=== PATIENT | female | born 1995 | race Two or more races ===

== ENCOUNTER 2023-06-14 02:27 | Inpatient (IN) | payer BC, OTHER ==
[~2023-06-14] VITALS: Ht 168 cm; Wt 91.6 kg
[2023-06-14] MEDS ORDERED: PROMETHAZINE HCL 25 MG/ML 1ML IV PRN (03:30)
[2023-06-14] MEDS ORDERED: BUTORPHANOL TARTRATE 2 MG/1 ML VIAL IV PRN ×2 (03:30)
[2023-06-14] MEDS ORDERED: LIDOCAINE 2%HCL (LOCAL ANESTH.) INJ 20ML MDV IJ PRN (03:30)
[2023-06-14] MEDS ORDERED: PREN27TA7 OR (03:44)
[2023-06-14] MEDS: ePHEDrine SULFATE 50 MG/ML AMP IV ONE (03:45)
[2023-06-14] MEDS: NALOXONE HCL 0.4 MG/ML VIAL IV ONE (03:45)
[2023-06-14] MEDS: LACTATED RINGER'S 1,000 ML IV ONE (03:45)
[2023-06-14] MEDS: LACTATED RINGER'S 1,000 ML IV SCH (03:57)
[2023-06-14 04:12] LABS: Basophils # (auto) 0 10 ^3/uL (0-0.2); Basophils % (auto) 0.3 % (0.0-2.0); Eosinophils # (auto) 0 10 ^3/uL (0-0.8); Monocytes # (auto) 0.7 10 ^3/uL (0-1.3)
[2023-06-14 04:13] LABS: Eosinophils % (auto) 0.3 % (0.0-7.0); Hematocrit 33.6 % (36.0-46.0); Hemoglobin 10.5 g/dL (12.2-16.2); Lymphocytes # (auto) 2.3 10 ^3/uL (0.4-5.4); Lymphocytes % (auto) 21.2 % (10.0-50.0); Mean Corpuscular Hemoglobin 25.2 pg (28.0-32.0); Mean Corpuscular Hgb Conc. 31.3 g/dL (32.0-36.0); Mean Corpuscular Volume 80.6 fL (80.0-100.0); Monocytes % (auto) 6.2 % (0.0-12.0); Neutrophils # (auto) 7.9 10 ^3/uL (1.6-8.6); Nucleated Red Blood Cells % 0.1 %; Red Blood Cells 4.18 10^6/uL (4.0-5.20); Red Cell Distribution Width 15.4 % (11.8-14.3)
[2023-06-14 04:15] LABS: Alanine Aminotransferase 19 U/L (7-40); Albumin 3.9 g/dL (3.2-4.8); Alkaline Phosphatase 133 U/L (46-116); Anion Gap 9 (5-15); Aspartate Aminotransferase 19 U/L (13-40); Bilirubin, Total 0.3 mg/dL (0.2-1.0); Blood Urea Nitrogen 7 mg/dL (9-23); Calcium 9.2 mg/dL (8.7-10.4); Carbon Dioxide 20 mmol/L (20-30); Chloride 106 mmol/L (98-107); Glucose 91 mg/dL (74-106); Potassium 3.8 mmol/L (3.5-5.1); Sodium 135 mmol/L (136-145); Total Protein 6.8 g/dL (5.7-8.2)
[2023-06-14 04:29] LABS: INR 0.92 (0.9-1.15); Partial Thromboplastin Time 26.1 SEC (24.5-34.5); Prothrombin Time 9.7 sec (9.3-11.8)
[2023-06-14] MEDS: DERMOPLAST 60ML BOTTLE TOP PRN (05:50)
[2023-06-14] MEDS: WITCH HAZEL-GLYCERIN PAD TOP PRN (05:51)
[2023-06-14] MEDS: PHISODERM TOP SOLN 240ML BTL TOP PRN (05:51)
[2023-06-14] MEDS ORDERED: ceFAZolin 1GM/50ML 50 ML IV SCH (06:00)
[2023-06-14] MEDS: ROPIVACAINE HCL 200 ML ONE (06:06)
[2023-06-14] MEDS ORDERED: LACT. RINGERS/OXYTOCIN 20UNITS 1,000 ML IV SCH (07:15)
[2023-06-14] MEDS: LACT. RINGERS/OXYTOCIN 20UNITS 500 ML IV ONE ×2 (07:27→08:09)
[2023-06-14 08:45] LABS: Urine Bacteria NONE SEEN /hpf (None Seen); Urine Blood 1+ /uL (Negative); Urine Clarity Clear (Clear); Urine Protein, UAD Negative (Negative); Urine Specific Gravity 1.011 (1.001-1.035); Urine Urobilinogen Normal (Negative); Urine WBC <1 /hpf (0 - 5)
[2023-06-14 08:47] LABS: Urine Color Yellow (Yellow)
[2023-06-14 08:58] LABS: Amphetamine Screen, Urine Neg (NEGATIVE); Barbiturate Scree,Urine Neg (NEGATIVE); Benzodiazephine Screen, Urine Neg (NEGATIVE); Cocaine Screen, Urine Neg (NEGATIVE)
[2023-06-14 08:59] LABS: Cannabinoid Screen, Urine Neg (NEGATIVE); Opiate Scree,Urine Neg (NEGATIVE); Phencyclidine Screen, Urine Neg (NEGATIVE)
[2023-06-14 11:00] VITALS: BP 107/55; PULSE 77; RESP 16; TEMP 100; O2SAT 97
[2023-06-14] MEDS: ACETAMINOPHEN 325 MG TAB PO PRN (11:59)
[2023-06-14] MEDS: IBUPROFEN 600 MG TAB PO PRN (13:52)
[2023-06-14 14:52] VITALS: BP 111/56; PULSE 75; RESP 16; TEMP 99; O2SAT 97
[2023-06-14 19:15] VITALS: BP 110/64; PULSE 68; RESP 18; TEMP 98.2; O2SAT 95
[2023-06-14 23:00] VITALS: BP 117/59; PULSE 63; RESP 16; TEMP 98.8; O2SAT 96
[2023-06-15 03:00] VITALS: BP 111/55; PULSE 58; RESP 16; TEMP 98.2; O2SAT 95
[2023-06-15 07:19] VITALS: BP 106/59; PULSE 67; RESP 16; TEMP 98.6; O2SAT 97
[2023-06-15 11:07] LABS: Rubella Antibodies, IgG 1.57 index (Immune >0.99)
[2023-06-17 05:07] LABS: RPR Non Reactive (Non Reactive)
[2023-06-17 19:06] LABS: Treponema pallidum Ab (FTA-Ab) Non Reactive (Non Reactive)
== END 2023-06-15 11:08 | disposition home or self-care (01) | DRG 807 ==
LOC: LDRP 02:27 → OBSVTOIN 03:15 → LDRP 03:16
PROVIDERS: ADMIT Obstetrics & Gynecology; ATTEND Obstetrics & Gynecology
PROC: 10E0XZZ Delivery of Products of Conception, External Approach (ICD-10-PCS; principal; 2023-06-14)
PROC: 0HQ9XZZ Repair Perineum Skin, External Approach (ICD-10-PCS; 2023-06-14)
PROC: 3E0R3BZ Introduction of Anesthetic Agent into Spinal Canal, Percutaneous Approach (ICD-10-PCS; 2023-06-14)
PROC: 00HU33Z Insertion of Infusion Device into Spinal Canal, Percutaneous Approach (ICD-10-PCS; 2023-06-14)
DX: O99.214 Obesity complicating childbirth (principal); Z37.0 Single live birth; O70.0 First degree perineal laceration during delivery; E66.01 Morbid (severe) obesity due to excess calories; Z3A.37 37 weeks gestation of pregnancy; Z88.0 Allergy status to penicillin
CPT/HCPCS: 36415; 59025; 59409; 62282; 80053; 80307; 81001; 81002; 85025; 85610; 85730; 86592; 86703; 86762; 86850; 86900; 86901; 87340; 94760; 96360; 96361; 96365; 96366; G0378; J2590